=== PATIENT | male | born 1960 | race Caucasian/White ===

== ENCOUNTER 2019-12-17 08:21 | Outpatient (CLI) | payer BC, SELFPAY ==
[2019-12-17 09:01] LABS: Anion Gap 13.4 mmol/L (7-16); Blood Urea Nitrogen 17 mg/dL (9-20); Calcium 9.1 mg/dL (8.4-10.2); Carbon Dioxide 24 mmol/L (22-30); Chloride 103 mmol/L (98-107); Estimated Glomerular Filt Rate > 60; Glucose 219 mg/dL (75-110); Potassium 4.4 mmol/L (3.4-5.0); Sodium 136 mmol/L (137-145)
[2019-12-17 09:08] LABS: Hemoglobin A1C 7.4 % (<5.7)
== END 2019-12-17 08:22 | disposition home or self-care (01) ==
LOC: ANHLAB 08:23
PROVIDERS: PCP Physician Assistant; Visit Provider Physician Assistant
DX: E11.40 Type 2 diabetes mellitus with diabetic neuropathy, unspecified (principal); Z79.4 Long term (current) use of insulin
CPT/HCPCS: 36415; 80048; 83036

== ENCOUNTER 2020-04-04 06:42 | Outpatient (CLI) | payer OTHER, SELFPAY ==
[2020-04-04 08:05] LABS: Creatinine Urine 136.5 mg/dL
[2020-04-04 08:10] LABS: MALB Creatinine Ratio 30.7 mg/g (0-30); Microalbumin Urine Random 41.9 mg/L (0-16.7)
[2020-04-10 12:20] LABS: FSH 8.4 mIU/mL (1.6-8.0); LH 5.5 mIU/mL (1.5-9.3)
== END 2020-04-04 06:43 | disposition home or self-care (01) ==
PROVIDERS: PCP Physician Assistant; Visit Provider Internal Medicine Endocrinology, Diabetes & Metabolism
DX: E11.40 Type 2 diabetes mellitus with diabetic neuropathy, unspecified (principal); Z79.4 Long term (current) use of insulin
CPT/HCPCS: 36415; 82043; 83001; 83002

== ENCOUNTER 2020-09-27 07:00 | Outpatient (CLI) | payer OTHER, SELFPAY ==
[2020-09-27 08:10] LABS: Cholesterol 153 mg/dL (0-200); HDL Direct 28 mg/dL; Triglycerides 154 mg/dL (<150)
[2020-09-27 08:11] LABS: Alanine Aminotransferase 31 U/L (4-50); Albumin Level 4.2 g/dL (3.5-5.1); Alkaline Phosphatase 92 U/L (38-126); Anion Gap 6 mmol/L (8-16); Aspartate Amino Transferase 28 U/L (17-59); Bilirubin,Total 0.2 mg/dL (0.2-1.3); Blood Urea Nitrogen 19 mg/dL (9-20); Calcium 9.5 mg/dL (8.4-10.2); Carbon Dioxide 27 mmol/L (22-30); Chloride 104 mmol/L (98-107); Estimated Glomerular Filt Rate > 60; Glucose 141 mg/dL (75-110); Potassium 4.4 mmol/L (3.4-5.0); Sodium 137 mmol/L (137-145)
[2020-09-27 08:21] LABS: LDL Cholesterol Direct 101 mg/dL
[2020-09-27 08:27] LABS: Creatinine Urine 109.5 mg/dL
[2020-09-27 08:32] LABS: MALB Creatinine Ratio 6.2 mg/g (0-30); Microalbumin Urine Random 6.8 mg/L (0-16.7)
[2020-09-30 07:53] LABS: Testosterone Total 249 ng/dL (250-1100)
[2020-09-30 20:30] LABS: Sex Hormone Binding Globulin 23 nmol/L (22-77)
== END 2020-09-27 07:01 | disposition home or self-care (01) ==
LOC: ANHLAB 07:03
PROVIDERS: PCP Physician Assistant; Visit Provider Internal Medicine Endocrinology, Diabetes & Metabolism
DX: E11.40 Type 2 diabetes mellitus with diabetic neuropathy, unspecified (principal); E78.2 Mixed hyperlipidemia; I10 Essential (primary) hypertension; Z79.4 Long term (current) use of insulin
CPT/HCPCS: 36415; 80053; 80061; 82043; 84270; 84403; 84443

== ENCOUNTER 2020-12-08 03:58 | Inpatient (IN) | payer OTHER, SELFPAY ==
[2020-12-08] VITALS (27 sets, daily range): BP systolic 126–162; BP diastolic 62–90; PULSE 56–81; RESP 13–23; TEMP 36.6–37.1; O2SAT 91–100; BMI 41.1
--- NOTE | 2020-12-08 | EST_ITS ---
Patient Info Name: Jean-Claude Leiva Age: 59 years : 1960 Gender: Male Ht: 72 in Wt: 160 lbs BSA: 1.92 m2 Exam Date: 12/08/2020 2:22 PM Exam Location: [facility] Stress Patient Status: Inpatient Admit Date: 12/08/2020 Staff Ordering Physician: Isaias Molina MD Attending Provider: Cindy Tai DO Exercise Technologist: Milly Soriano RDCS Exercise Physician: Isaias Molina MD Exam Type: CA stress tee w NM Study Info Indications R07.9 - Chest pain, unspecified A regadenoson stress test was performed. Summary 1. Normal sinus rhythm - normal ECG. 2. No ST segment changes of ischemia following Lexiscan injection. 3. Clinically and electrocardiographically negative Lexiscan stress test. 4. Myocardial perfusion imaging study to follow under separate report per Radiology. Protocol: Lexiscan Stress ECG Details Stage: REST Duration (min): 6 min : 23 sec HR (bpm): 59 SBP (mmHg): 158 DBP (mmHg): 73 Stage: REST Duration (min): 14 min : 19 sec HR (bpm): 60 SBP (mmHg): 158 DBP (mmHg): 73 Stage: STAGE 1 Duration (min): 0 min : 59 sec HR (bpm): 90 SBP (mmHg): 148 DBP (mmHg): 53 Stage: RECOVERY Duration (min): 1 min : 0 sec HR (bpm): 82 SBP (mmHg): 164 DBP (mmHg): 66 Stage: RECOVERY Duration (min): 2 min : 0 sec HR (bpm): 75 SBP (mmHg): 164 DBP (mmHg): 66 Stage: RECOVERY Duration (min): 3 min : 0 sec HR (bpm): 70 SBP (mmHg): 159 DBP (mmHg): 74 Stage: RECOVERY Duration (min): 3 min : 7 sec HR (bpm): 71 SBP (mmHg): 159 DBP (mmHg): 74 Rest HR: 60 bpm Peak HR: 90 bpm Rest Sys BP: 158 mmHg Peak Sys BP: 164 mmHg Max Pred HR: 162 bpm % Max Pred HR: 56 % Target HR: 138 bpm Max RPP: 14,760 bpm*mmHg Termination Reason: Completed protocol Cardiac Symptoms: None Total Time: 1 min : 0 sec Rest Espinoza BP: 73 mmHg Peak Espinoza BP: 66 mmHg Total Dose: 0.4 mg Resting ECG Normal sinus rhythm - normal ECG. Stress ECG No abnormal ST/T wave changes with exercise. Report Signatures
--- NOTE | ~2020-12-08 | XR_ITS ---
EXAMINATION: XR chest 2V 12/08/2020 04:24 INDICATION: Chest pain PROCEDURE: PA and lateral views of the chest COMPARISON: 01/24/2019 FINDINGS: The lungs are clear. The cardiomediastinal silhouette is within normal limits. There are no pleural effusions. There is no pneumothorax suspected. IMPRESSION: 1: NO ACUTE CARDIOPULMONARY DISEASE. Reviewed, dictated and finalized at location A.
--- NOTE | ~2020-12-08 | NM_ITS ---
EXAMINATION: NM tee stress w perfusion DATE: 12/08/2020 14:23 INDICATION: Chest pain. TECHNIQUE: Rest images were obtained following intravenous administration of 9.56 mCi Tc99m tetrofosm in (Myoview). The patient was infused intravenously with Lexiscan (Regadenoson). Then, 27.7 mCi Tc99m tetrofosmin (Myoview) was administered intravenously, and stress images were obtained. Data was rolando nstructed into short axis and horizontal and vertical long axis SPECT images. Gated SPECT images were also obtained. COMPARISON: None. FINDINGS: There is decreased activity along the inferior wall of the heart on both the rest and stres s images which appears related to diaphragmatic attenuation artifact. Small focus of computer compute r called decreased perfusion on the stress images at the mid inferolateral and to lesser degree basil ar inferolateral segments. This appears indistinguishable to the diaphragmatic attenuation artifact a nd remains equivocal for additional attenuation artifact versus ischemia. No fixed infarct. There is normal left ventricular chamber size, wall motion and ejection fraction. Left ventricular ejection f raction measures 66%. IMPRESSION: 1. Small region of mildly decreased relative perfusion on the stress versus rest images at the mid in ferolateral and and basilar inferolateral segments equivocal for ischemia versus diaphragmatic attenu ation artifact. No fixed infarct. 2. Left ventricular ejection fraction measuring 66%. Reviewed, dictated and finalized at location A. IMPRESSION: 1. Small region of mildly decreased relative perfusion on the stress versus res t images at the mid inferolateral and and basilar inferolateral segments equivo francisco for ischemia versus diaphragmatic attenuation artifact. No fixed infarct. 2. Left ventricular ejection fraction measuring 66%.
--- NOTE | 2020-12-08 04:14 | ECG_ITS ---
Measurements Intervals [place] Rate: 70 P: 59 MT: 198 QRS: 5 QRSD: 96 T: 91 QT: 400 QTc: 433 Interpretive Statements SINUS RHYTHM EARLY PRECORDIAL R/S TRANSITION LOW QRS VOLTAGE IN PRECORDIAL LEADS BORDERLINE ST-T WAVE ABNORMALITY- HIGH LATERAL LEADS BASELINE ARTIFACT- I, II, III, AVR, AVF, V2-V6 BORDERLINE ECG Electronically Signed On 12-08-2020 6:41:51 CDT by Devendra Espinoza D.O.
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
[2020-12-08 05:31] LABS: Basophils Percent Auto 0.4 % (0.2-1.2); Eosinophils Absolute Auto 0.1 K/mm3 (0-0.3); Eosinophils Percent Auto 1.7 % (0-4.4); Hematocrit 40.9 % (42.0-52.0); Hemoglobin 13.6 g/dL (14.0-18.0); Immature Granulocyte Absolute 0.06 K/mm3 (0.00-0.031); Immature Granulocyte Percent A 0.7 % (0-0.5); Lymphocytes Absolute Auto 2.27 K/mm3 (0.9-3.2); Lymphocytes Percent Auto 26.9 % (18.3-44.2); Mean Corpuscular HGB Conc 33.3 g/dl (32-36); Mean Corpuscular Hemoglobin 29.6 pg (26-34); Mean Corpuscular Volume 88.9 fl (80-100); Mean Platelet Volume 11.1 fl (7.4-10.4); Monocytes Absolute Auto 0.6 K/mm3 (0.1-0.6); Monocytes Percent Auto 7.1 % (2.6-8.5); Neutrophils Absolute Auto 5.4 K/mm3 (1.3-6.7); Neutrophils Percent Auto 63.2 % (45.5-73.1); Platelet Count Result 276 k/mm3 (150-375); Red Cell Distribution Width 14.2 % (11.5-14.5); White Blood Count 8.5 K/mm3 (4.5-10.0)
[2020-12-08 05:41] LABS: INR 0.9; Prothrombin Time 11.7 Seconds (11.1-14.7)
[2020-12-08 05:42] LABS: Partial Thromboplastin Time 29.2 SECONDS (22.3-36.8)
[2020-12-08 05:48] LABS: Anion Gap 15 mmol/L (8-16); Blood Urea Nitrogen 19 mg/dL (9-20); Carbon Dioxide 18 mmol/L (22-30); Chloride 106 mmol/L (98-107); Estimated CRCL calculation 73 ml/min; Estimated Glomerular Filt Rate > 60; Glucose 143 mg/dL (65-110); Potassium 3.8 mmol/L (3.4-5.0); Sodium 139 mmol/L (137-145)
[2020-12-08 05:52] LABS: D Dimer 0.31 ug/mL (<0.48)
[2020-12-08 06:00] LABS: Troponin I < 0.012 ng/mL (0.000-0.034)
[2020-12-08 07:29] LABS: Glucose Point of Care 131 mg/dl (65-105)
--- NOTE | 2020-12-08 09:18 | PC.NURSE ---
This patient, Jean-Claude Leiva, was admitted to IMU Room 206-01. Patient/family oriented to hospital policies and general routines including ID bracelet, bed and alarms, visiting hours, pain management, procedures, bathroom and other care routines, personal items, smoking policy, room service/diet, and visiting hours. Information on how to activate the Rapid Response Team has been discussed. Patient/Family are encouraged to report perceived risks to care and to ask questions if they do not understand what they are told or what they should do.
[2020-12-08 10:04] LABS: Troponin I < 0.012 ng/mL (0.000-0.034)
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
[2020-12-08] MEDS: ASPIRIN 81 MG CHEWABLE TABLET PO (10:38)
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
[2020-12-08 11:52] LABS: Glucose Point of Care 139 mg/dl (65-105)
[2020-12-08 13:07] LABS: Troponin I < 0.012 ng/mL (0.000-0.034)
[2020-12-08 15:52] LABS: Glucose Point of Care 136 mg/dl (65-105)
--- NOTE | 2020-12-08 19:00 | ECG_ITS ---
Measurements Intervals [place] Rate: 63 P: 62 SC: 218 QRS: -6 QRSD: 89 T: 54 QT: 398 QTc: 408 Interpretive Statements SINUS RHYTHM WITH FIRST DEGREE AV BLOCK BORDERLINE ST-T WAVE ABNORMALITY- HIGH LATERAL LEADS BASELINE ARTIFACT- I, II, AVR, AVL, AVF ABNORMAL ECG Electronically Signed On 12-08-2020 22:16:57 CDT by Devendra Espinoza D.O.
[2020-12-08] MEDS: ACETAMINOPHEN 325 MG TABLET 650 MG PO (19:01)
[2020-12-08] MEDS: NITROGLYCERIN SL 0.4 MG TABLET SUBLINGUAL ×2 (19:01→19:10)
[2020-12-08 21:00] LABS: Glucose Point of Care 141 mg/dl (65-105)
[2020-12-09] VITALS (15 sets, daily range): BP systolic 108–153; BP diastolic 53–79; PULSE 58–110; RESP 12–18; TEMP 36.6–37.1; O2SAT 95–99
[2020-12-09 08:10] LABS: Glucose Point of Care 169 mg/dl (65-105)
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
--- NOTE | 2020-12-09 08:22 | WPDHPUPDATE1 ---
History and Physical Update Update Date/Time: 12/09/20 08:22 History and Physical has been reviewed, including an updated exam of the patient. There are NO changes in the patient's condition. Risks, benefits, and alternatives have been discussed and questions answered. Patient agrees to proceed with procedure.
--- NOTE | 2020-12-09 08:42 | PC.NURSE ---
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
--- NOTE | 2020-12-09 10:31 | WPDCARDPROC ---
Cardiac Cath Procedure Note Date of procedure:: 12/09/20 Performing physician:: Edgar Garcia MD Procedure Procedure note:: CARDIAC CATHETERIZATION AND PERCUTANEOUS CORONARY INTERVENTION REPORT DATE OF PROCEDURE: 12/09/2020 INDICATION FOR PROCEDURE: unstable angina BRIEF CLINICAL HISTORY: 59-year-old male with hypertension, diabetes mellitus on insulin, dyslipidemia, morbid obesity. Patient was admitted to [facility] on 12/08/2020 with complaints of midsternal chest pain for 2 weeks. His EKG did not show any acute ST segment abnormality . Serial troponins were negative. Patient had MPI performed yesterday which reportedly showed Small region of mildly decreased relative perfusion on the stress versus rest images at the mid inferolateral and and basilar inferolateral segments equivocal for ischemia versus diaphragmatic attenuation artifact; EF 66% . Patient was referred for cardiac catheterization to rule out significant obstructive CAD. Benefits and risks of the procedure were discussed with the patient in depth, and informed consent was obtained prior to the procedure. Risks of the procedure include but are not limited to vascular complications including groin hematoma, retroperitoneal bleed, vessel perforation; periprocedural NE, cardiac arrhythmias, stroke, contrast induced nephropathy, and . After discussing all the benefits, risks and alternatives, patient was willing to proceed with the procedure. PROCEDURES PERFORMED: 1. Left heart catheterization- Selective left and right coronary angiogram; left ventriculogram and hemodynamic assessment 2. Percutaneous coronary intervention- Balloon angioplasty and stenting of proximal-mid RCA using a 3.5 x 26 mm Biotronik orsiro sirolimus eluting stent with good angiographic results. 3. Selective right common femoral angiogram and deployment of Angio-Seal hemostatic device 4. Moderate sedation-CPT code 29697 MODERATE SEDATION: Midazolam 2 mg; fentanyl 50 mcg. Start time 0905 , Stop time 1021 ; Total [id number] time 76 minutes; Tejal Callahan RN was trained observer for moderate sedation. ACCESS SITE: Right common femoral artery PROCEDURE NOTE: After obtaining informed consent, patient was brought to catheterization lab and prepped and draped in a usual sterile manner. After local anesthesia with lidocaine, right common femoral artery access was taken with micropuncture needle followed by insertion of a 5 [place] sheath. Selective left and right coronary angiogram was performed using 5 [place] JL4 and JR4 catheters respectively. Orthogonal views were taken. Next, a 5 [place] pigtail catheter was advanced in the LV cavity and was flushed with normal saline. LV pressure measurement was performed. After this, left ventriculogram was performed. The catheter was flushed again, and gradient across the aortic valve was measured on the pullback of the catheter . After completion of PCI, Selective right common femoral angiogram was performed after PCI followed by successful deployment of Angio-Seal vascular closure device. Patient tolerated procedure well without any immediate procedure related complications. FINDINGS: LEFT MAIN CORONARY: the left main coronary artery is a large caliber, short vessel, no angiographic significant focal stenosis. The vessel divides bifurcates into LAD and LCX at almost right angles. LEFT ANTERIOR DESCENDING ARTERY: The LAD is a large caliber vessel in the proximal segment; becomes medium caliber, tortuous vessel in the mid segment, tapers distally and reaches the LV apex. Mild diffuse calcification is seen in the proximal-mid segment on fluoroscopy, no significant focal stenosis is seen in the LAD or its diagonal branches. LEFT CIRCUMFLEX ARTERY: The left circumflex artery is a medium to large caliber, very tortuous vessel. The vessel is codominant. It gives rise to medium to large caliber, tortuous OM1 branch, small to medium caliber tortuous OM 2 bran
--- NOTE | 2020-12-09 10:57 | PM.IMPN ---
Progress Note: A&P Assessment and Plan (1) Chest pain: Code(s): R07.9 - Chest pain, unspecified Status: Acute Assessment and Plan: Chest pain history is concerning for ischemic symptoms but negative Troponins x 3. EKG showing high lateral ST-T wave changes without change on repeat EKG. Lexiscan stress test showing a small region of mildly decreased relative perfusion on the stress versus rest images at the mid inferolateral and and basilar inferolateral segments equivocal for ischemia versus diaphragmatic attenuation artifact. No fixed infarcts. LVEF 66%. Patient continued to have chest discomfort so C planned for today. LHC showing 70% stenosis mid RCA s/p MORENO placement. It was complicated by the tortuosity of the vessel. medical management (2) Primary hypertension: Code(s): I10 - Essential (primary) hypertension Status: Acute Assessment and Plan: BP noted and mildly elevated at times. We resumed home medications. Continue to monitor. (3) Mixed hyperlipidemia: Code(s): E78.2 - Mixed hyperlipidemia Status: Acute Assessment and Plan: LFTs okay. Continue Lipitor (4) Type 2 diabetes mellitus with diabetic neuropathy, with long-term current use of insulin: Code(s): E11.40 - Type 2 diabetes mellitus with diabetic neuropathy, unspecified; Z79.4 - long-term (current) use of insulin Status: Acute Assessment and Plan: Last A1c 8.7. Holding 70/30 since NPO at this time. Resume for dinner tonight. Continue to hold other medications for now. Continue AccuCheks covering with sliding scale. Hypoglycemia protocol available as needed. (5) DVT prophylaxis: Code(s): Z29.9 - Encounter for prophylactic measures, unspecified Status: Acute Assessment and Plan: Lovenox (6) CAD (coronary artery disease): Code(s): I25.10 - Atherosclerotic heart disease of [place] coronary artery without angina pectoris Status: Acute Assessment and Plan: As above. Subjective Date/time seen: 12/09/20 10:57 Interval history: 59yo male with DM and HTN here for chest pain. Patietn had chest pain again last night described as 'heaviness'. The pain improved with NTG. Slept okay. Patient being taken for [facility] this morning Exam Narrative: Exam Narrative: AF 97.8 145/79 69 13 99% ra Gen - NARD Chest - lungs are clear to auscultation bilaterally. CV - RRR S1/S2; Tele showing mild bradycradia Abd - Soft. Obese. Nontender. Nondistended. Positive bowel sounds. Ext - no pedal edema. Psych - normal mood and affect. Patient is pleasant and cooperative. Skin - warm and dry. Objective Data Vital Signs Vital Signs: Vital Signs - 24 hr 12/08/20 11:12 12/08/20 11:51 12/08/20 12:00 Temperature 98 F 97.9 F Pulse Rate 80 66 66 Respiratory Rate 20 14 Blood Pressure 152/62 H 142/62 H Pulse Oximetry 100 97 12/08/20 14:00 12/08/20 15:53 12/08/20 16:00 Temperature 98.4 F Pulse Rate 62 60 64 Respiratory Rate 17 Blood Pressure 134/65 Pulse Oximetry 100 12/08/20 18:00 12/08/20 19:00 12/08/20 20:00 Temperature 98.7 F Pulse Rate 65 61 Respiratory Rate 15 Blood Pressure 133/65 134/68 Pulse Oximetry 95 12/08/20 22:00 12/09/20 00:00 12/09/20 02:00 Temperature 98.2 F Pulse Rate 56 L 64 58 L Respiratory Rate 14 Blood Pressure 145/67 H Pulse Oximetry 95 12/09/20 04:00 12/09/20 06:00 12/09/20 08:00 Temperature 98.7 F 97.8 F Pulse Rate 61 106 H 84 Respiratory Rate 14 16 Blood Pressure 131/64 150/76 H Pulse Oximetry 99 98 12/09/20 10:45 Temperature Pulse Rate 69 Respiratory Rate 13 Blood Pressure 145/79 H Pulse Oximetry 99 Intake/Output Intake/Output: Intake & Output 12/06/20 12/07/20 12/08/20 12/09/20 23:59 23:59 23:59 23:59 Intake Total 1130 Output Total 650 Balance 480 Meds/Results Medications: Active Medications Generic Nam
--- NOTE | 2020-12-09 12:32 | PC.NURSE ---
Returned to room post cardiac cath- right groin dressing
[2020-12-09 12:38] LABS: Glucose Point of Care 165 mg/dl (65-105)
[2020-12-09] MEDS: amLODIPine BESYLATE 5 MG TABLET PO (13:08)
[2020-12-09] MEDS: lisinopriL 20 MG TABLET PO (13:08)
[2020-12-09] MEDS: SODIUM CHLORIDE 0.9% IV 1,000 ML 125 ML IV CONT (13:29)
[2020-12-09 17:14] LABS: Glucose Point of Care 200 mg/dl (65-105)
[2020-12-09] MEDS: INSULIN HUMAN ISOPHAN/REGULAR 70/30 (*BKC) 100 UNITS/ML 50 UNITS SUB-Q (17:48)
--- NOTE | 2020-12-10 16:40 | PM.DS ---
DS: Admitting Diagnosis Admitting Diagnosis Chest pain DS: Discharge Diagnosis Discharge Diagnosis (1) Chest pain: Code(s): R07.9 - Chest pain, unspecified Status: Acute (2) CAD (coronary artery disease): Code(s): I25.10 - Atherosclerotic heart disease of [place] coronary artery without angina pectoris Status: Acute (3) Primary hypertension: Code(s): I10 - Essential (primary) hypertension Status: Acute (4) Mixed hyperlipidemia: Code(s): E78.2 - Mixed hyperlipidemia Status: Acute (5) Type 2 diabetes mellitus with diabetic neuropathy, with long-term current use of insulin: Code(s): E11.40 - Type 2 diabetes mellitus with diabetic neuropathy, unspecified; Z79.4 - exterminator helper termite (current) use of insulin Status: Acute DS: Summary Hospital Course Reason for hospitalization: 59yo male with DM and HTN here for chest pain. Please see H&P for details. Hospital Course: Patient presents with chest pain and provided a history concerning for ischemic symptoms. Troponin negative x3. EKG showing high lateral ST-T wave changes without change on repeat EKG. Lexiscan stress test showing a small region of mildly decreased relative perfusion on the stress versus rest images at the mid inferolateral and and basilar inferolateral segments equivocal for ischemia versus diaphragmatic attenuation artifact. No fixed infarcts. LVEF 66%. Patient continued to have chest discomfort so LHC was planned. LHC showing 70% stenosis mid RCA s/p MORENO placement. It was complicated by the tortuosity of the vessel. Medical management started. For his hypertension, we monitored his BP closely on his home medications. LFTs were normal and we continued his Lipitor. For his DM, he has been working with an tradeshow worker to bring his glucose under better control. His last A1c 8.7 down from the 11 range. We held his 70/30 initially since NPO at times but then resumed. He was monitored closely with AccuCheks covering with sliding scale. Hypoglycemia protocol was available as needed. Patient tolerated the procedure well. He was eager for discharge. Patient overall did well and was able to be discharged home in stable condition on 12/09/20 Status at Discharge Cognitive/behavioral status at discharge: Stable Time Spent with Patient Time attestation: Total time spent providing and/or coordinating discharge services:32 minutes Time spent: Greater than 30 minutes Exam Narrative: AF 97.8 145/79 69 13 99% ra Gen - NARD Chest - lungs are clear to auscultation bilaterally. CV - RRR S1/S2; Tele showing mild bradycradia Abd - Soft. Obese. Nontender. Nondistended. Positive bowel sounds. Ext - no pedal edema. Psych - normal mood and affect. Patient is pleasant and cooperative. Skin - warm and dry. DS: Data Data Completed and Pending Labs on day of discharge: Labs from last 24 hours 12/09/20 17:03 POC Capillary Glucose 200 H Discharge Plan Discharge Attending physician on discharge: Houston Addison Consulting providers: Isamar Hazel Discharging Clinician: Gloria Pires Patient Disposition: Home, Self-Care Activity: other - see discharge instructions Diet: other - see discharge instructions Wound Care Instructions: other - see discharge instructions Discharge Instructions: [facility] [address] [place] [address] DISCHARGE INSTRUCTIONS - POST PCI Activity
== END 2020-12-09 19:11 | disposition home or self-care (01) | DRG 247 ==
LOC: ANHED 07:20 → ANHIMU 08:26
PROVIDERS: Internal Medicine Cardiovascular Disease; Specialist; Admitting Provider Internal Medicine; Emergency Provider General Practice; PCP Physician Assistant; Visit Provider Internal Medicine
PROC: 4A023N7 Measurement of Cardiac Sampling and Pressure, Left Heart, Percutaneous Approach (ICD-10-PCS; CPT 93452; principal; 2020-12-09 11:30)
PROC: 027034Z Dilation of Coronary Artery, One Artery with Drug-eluting Intraluminal Device, Percutaneous Approach (ICD-10-PCS; 2020-12-09 11:30)
PROC: 027034Z Dilation of Coronary Artery, One Artery with Drug-eluting Intraluminal Device, Percutaneous Approach (ICD-10-PCS; 2020-12-09 11:30)
DX: I25.10 Atherosclerotic heart disease of native coronary artery without angina pectoris (principal); Z68.41 Body mass index [BMI] 40.0-44.9, adult; I77.1 Stricture of artery; I10 Essential (primary) hypertension; E78.5 Hyperlipidemia, unspecified; M19.90 Unspecified osteoarthritis, unspecified site; H91.90 Unspecified hearing loss, unspecified ear; Z86.14 Personal history of Methicillin resistant Staphylococcus aureus infection; E78.2 Mixed hyperlipidemia; E66.01 Morbid (severe) obesity due to excess calories; E11.40 Type 2 diabetes mellitus with diabetic neuropathy, unspecified; K21.9 Gastro-esophageal reflux disease without esophagitis; F12.90 Cannabis use, unspecified, uncomplicated; Z79.84 Long term (current) use of oral hypoglycemic drugs
CPT/HCPCS: 36415; 71046; 78452; 80048; 82948; 84484; 85025; 85380; 85610; 85730; 93005; 93017; 93458; 96374; 99285; A9270; A9502; C1725; C1760; C1769; C1874; C1887; C1894; C9600; G0269; J0131; J0461; J0583; J1644; J1815; J2250; J2785; J3010; J7030; J7040

== ENCOUNTER 2021-01-10 08:45 | Outpatient (CLI) | payer OTHER, SELFPAY ==
[2021-01-10 09:08] LABS: Hematocrit 40.4 % (42.0-52.0); Hemoglobin 13.4 g/dL (14.0-18.0)
[2021-01-14 01:09] LABS: Testosterone Total 220 ng/dL (250-1100)
[2021-01-14 01:23] LABS: Testosterone Free 40.8 pg/mL (46.0-224.0)
== END 2021-01-10 08:46 | disposition home or self-care (01) ==
PROVIDERS: PCP Physician Assistant; Visit Provider Internal Medicine Endocrinology, Diabetes & Metabolism
DX: R79.89 Other specified abnormal findings of blood chemistry (principal)
CPT/HCPCS: 36415; 84402; 84403; 85014; 85018

== ENCOUNTER 2021-01-24 13:18 | Outpatient (CLI) | payer OTHER, SELFPAY ==
--- NOTE | ~2021-01-24 | MR_ITS ---
EXAMINATION: MR lumbar spine wo con EXAM DATE: 01/24/2021 14:05 INDICATION: M54.16 - Radiculopathy, lumbar region. Low back pain. TECHNIQUE: Multi-sequential, multiplanar MR images of the lumbar spine were obtained without contrast . Sagittal T1, T2, T2 fat saturation images. Axial T2 weighted images. There is no prior study for comparison. FINDINGS: There is moderate to severe loss of the L2-3 and L4-5 disc height, moderate at the other brunilda mbar levels. The conus medullaris terminates at the L1-2 level and has normal signal intensity and mo rphology. There are no suspicious marrow signal abnormalities. There is 3 mm retrolisthesis L5 on S1 . Paraspinal soft tissue is unremarkable. Level by level evaluation: T12-L1: There is a mild to moderate diffuse disc bulge. Facet arthropathy: Mild. Neural foraminal stenosis: No stenosis. Central canal stenosis: Minimal. L1-L2: There is a moderate diffuse disc bulge. Facet arthropathy: Mild to moderate. Neural foraminal stenosis: Mild to moderate left. Central canal stenosis: Mild. L2-L3: There is a moderate diffuse disc bulge. Facet arthropathy: Moderate. Neural foraminal stenosis: Mild left. Central canal stenosis: Mild to moderate. L3-L4: There is a moderate diffuse disc bulge. Facet arthropathy: Severe right, moderate left macro flavum. Neural foraminal stenosis: Mild to moderate bilateral. Central canal stenosis: Moderate. L4-L5: [id number] Facet arthropathy: Mild to moderate. Neural foraminal stenosis: Mild to moderate bilateral. Central canal stenosis: Mild. L5-S1: There is a moderate diffuse disc bulge. Facet arthropathy: Moderate. Neural foraminal stenosis: Moderate to severe right, moderate left. Central canal stenosis: Mild to moderate. IMPRESSION: 1. L5-S1 moderate to severe right neural foraminal stenosis. Less stenosis other levels. 2. Loss of disc heights without significant endplate degenerative change. Reviewed, dictated and finalized at location B. IMPRESSION: 1. L5-S1 moderate to severe right neural foraminal stenosis. Less stenosis oth er levels. 2. Loss of disc heights without significant endplate degenerative change.
== END 2021-01-24 13:19 | disposition home or self-care (01) ==
PROVIDERS: PCP Family Medicine; Visit Provider Family Medicine
DX: M47.27 Other spondylosis with radiculopathy, lumbosacral region (principal); M48.07 Spinal stenosis, lumbosacral region; M47.25 Other spondylosis with radiculopathy, thoracolumbar region; M48.05 Spinal stenosis, thoracolumbar region
CPT/HCPCS: 72148

== ENCOUNTER 2023-10-24 07:42 | Outpatient (CLI) | payer BC, SELFPAY ==
[2023-10-24 08:01] LABS: Hematocrit 41.7 % (42.0-52.0); Hemoglobin 13.9 g/dL (14.0-18.0); Mean Corpuscular HGB Conc 33.3 g/dl (32-36); Mean Corpuscular Hemoglobin 29.8 pg (26-34); Mean Corpuscular Volume 89.5 fl (80-100); Mean Platelet Volume 10.2 fl (7.4-10.4); Platelet Count Result 297 k/mm3 (150-375); Red Blood Count 4.66 M/mm3 (4.6-6.20); Red Cell Distribution Width 14.6 % (11.5-14.5); White Blood Count 7.3 K/mm3 (4.5-10.0)
[2023-10-24 08:11] LABS: Alanine Aminotransferase 31 U/L (6-50); Albumin Level 4.3 g/dL (3.5-5.1); Alkaline Phosphatase 90 U/L (38-126); Anion Gap 8 mmol/L (4-12); Aspartate Amino Transferase 28 U/L (17-59); Bilirubin,Total 0.5 mg/dL (0.2-1.3); Blood Urea Nitrogen 15 mg/dL (9-20); Calcium 9.3 mg/dL (8.4-10.2); Carbon Dioxide 25 mmol/L (22-30); Chloride 104 mmol/L (98-107); Cholesterol 164 mg/dL (0-200); Estimated Glomerular Filt Rate > 60; Glucose 203 mg/dL (65-110); HDL Direct 26 mg/dL; Potassium 4.6 mmol/L (3.4-5.0); Sodium 137 mmol/L (137-145); Triglycerides 149 mg/dL (<150)
[2023-10-24 08:17] LABS: Iron 105 ug/dL (49-181)
[2023-10-24 08:22] LABS: LDL Cholesterol Direct 119 mg/dL
[2023-10-24 08:23] LABS: Hemoglobin A1C 7.3 % (<5.7)
[2023-10-24 08:32] LABS: Percent Iron Saturation 29 % (20-50)
[2023-10-24 08:41] LABS: Prostate Specific Antigen 0.4 ng/mL (< OR = 4.0)
[2023-10-24 10:08] LABS: Creatinine Urine 75.3 mg/dL
[2023-10-24 10:11] LABS: MALB Creatinine Ratio 13.3 mg/g (0-30)
[2023-10-25 22:23] LABS: FSH 12.4 mIU/mL (1.4-12.8); LH 6.3 mIU/mL (1.6-15.2); Prolactin 6.2 ng/mL (2.0-18.0)
[2023-10-27 20:08] LABS: Testosterone Total 372 ng/dL (250-1100)
[2023-10-28 11:13] LABS: Testosterone Free 49.3 pg/mL (46.0-224.0)
== END 2023-10-24 07:43 | disposition home or self-care (01) ==
LOC: ANHLAB 07:44
PROVIDERS: PCP Nurse Practitioner Family; Visit Provider Nurse Practitioner Family
DX: R79.89 Other specified abnormal findings of blood chemistry (principal); E11.40 Type 2 diabetes mellitus with diabetic neuropathy, unspecified; E66.01 Morbid (severe) obesity due to excess calories; E78.2 Mixed hyperlipidemia; F32.9 Major depressive disorder, single episode, unspecified; G47.33 Obstructive sleep apnea (adult) (pediatric); H91.90 Unspecified hearing loss, unspecified ear; I10 Essential (primary) hypertension; I25.10 Atherosclerotic heart disease of native coronary artery without angina pectoris; K21.9 Gastro-esophageal reflux disease without esophagitis; M15.9 Polyosteoarthritis, unspecified; M51.16 Intervertebral disc disorders with radiculopathy, lumbar region; N52.9 Male erectile dysfunction, unspecified; Z13.0 Encounter for screening for diseases of the blood and blood-forming organs and certain disorders involving the immune mechanism; Z68.41 Body mass index [BMI] 40.0-44.9, adult; Z76.89 Persons encountering health services in other specified circumstances; Z79.4 Long term (current) use of insulin
CPT/HCPCS: 36415; 80053; 80061; 82043; 82533; 82728; 83001; 83002; 83036; 83540; 83550; 84146; 84153; 84402; 84403; 85027

== ENCOUNTER 2024-03-03 07:43 | Outpatient (CLI) | payer OTHER, SELFPAY ==
--- NOTE | ~2024-03-03 | XR_ITS ---
EXAMINATION: XR chest 2V 03/03/2024 07:56 INDICATION: Cough PROCEDURE: 2 view chest COMPARISON: Comparison to multiple prior studies sequentially, with oldest reviewed study dated 12/23. FINDINGS: The lungs are clear. The cardiomediastinal silhouette is within normal limits. There are no pleural effusions. There is no pneumothorax suspected. IMPRESSION: 1: NO ACUTE CARDIOPULMONARY DISEASE. Reviewed, dictated and finalized at location B.
== END 2024-03-03 07:44 | disposition home or self-care (01) ==
LOC: ANHIMG 07:45
PROVIDERS: PCP Nurse Practitioner Family; Visit Provider Nurse Practitioner Family
DX: R05.9 Cough, unspecified (principal)
CPT/HCPCS: 71046